=== PATIENT | male | born 1955 | race Caucasian/White ===

== ENCOUNTER 2017-07-28 15:29 | Emergency (ER) | payer OTHER ==
[2017-07-28 15:35] VITALS: BP 136/83
--- NOTE | 2017-07-28 15:48 | ED Physician Documentation ---
History of Present Illness - Stated complaint Stated Complaint: FB THROAT - Chief complaint Chief Complaint: Heent - History obtained from History obtained from: Patient, Family - History of Present Illness Timing: Other (Eating chicken about 45 minutes ago and feels like a bone is stuck on the left side of the throat. Swallowing and speaking is unaffected.) Review of Systems Constitutional: reports: Reviewed and negative Cardiac: reports: Reviewed and negative Respiratory: reports: Reviewed and negative PD PAST MEDICAL HISTORY - Past Medical History Past Medical History: No - Past Surgical History Past Surgical History: No - Present Medications Home Medications: Ambulatory Orders Medication Instructions Recorded Confirmed No Known Home Medications [No 07/28/17 07/28/17 Known Home Medications] - Allergies Allergies/Adverse Reactions: Allergies Allergy/AdvReac Type Severity Reaction Status Date / Time No Known Drug Allergies Allergy Verified 07/28/17 15:35 - Social History Does the pt smoke?: No Smoking Status: Never smoker Does the pt drink ETOH?: Yes Does the pt have substance abuse?: No - Immunizations Immunizations are current?: Yes - POLST Patient has POLST: No PD ED PE NORMAL - Vitals Vital signs reviewed: Yes - General General: Alert and oriented X 3, No acute distress - HEENT HEENT: Pharynx benign - Neck Neck: Supple, no meningeal sign, No bony TTP - Neuro Neuro: Alert and oriented X 3, Normal speech - Psych Psych: Normal mood, Normal affect Results - Vitals Vitals: Vital Signs - 24 hr 07/28/17 15:32 Temperature 36.3 C L Heart Rate 63 Respiratory 16 Rate Blood Pressure 136/83 H O2 Saturation 99 Oxygen O2 Source Room air - Rads (name of study) Soft tissue throat Radiology: EMP read contemporaneously (neg) Departure - Departure Disposition: Home, Self Care Clinical Impression: Throat discomfort Condition: Good Record reviewed to determine appropriate education?: Yes Instructions: ED Foreign Body Esophageal Rslv Comments: Call your doctor to arrange a follow-up appointment, make the next available appointment. In the interim, return anytime if worse or if new symptoms develop. Your blood pressure was elevated today on check into the emergency department. This does not mean that you have hypertension, it is a common phenomenon to come to the emergency department and have elevated blood pressure. I recommend that you see your primary care physician within the week to have it rechecked when you are feeling better.
--- NOTE | 2017-07-28 16:32 | XRAY Preliminary Report ---
Exam: XR NECK SOFT TISSUE IMPRESSION: Normal soft tissue neck radiography. [facility] SITE ID: [id number]
--- NOTE | 2017-07-28 16:39 | XRAY Report ---
EXAM: SOFT TISSUE NECK RADIOGRAPHY EXAM DATE: 07/28/2017 04:25 PM. CLINICAL HISTORY: Possible chicken bone stuck in throat. COMPARISONS: None. TECHNIQUE: 2 views. FINDINGS: Soft Tissues: No prevertebral soft tissue swelling. The epiglottis and aryepiglottic folds are unrema rkable. No tonsillar or adenoidal enlargement. No radiopaque foreign body. Regional Skeleton: Unremarkable for age. Other: The visualized lung apices are clear. IMPRESSION: Normal soft tissue neck radiography. [facility] Referring Provider Line: [phone] SITE ID: [id number]
== END 2017-07-28 17:04 | disposition home or self-care (01) ==
LOC: ED 15:29
DX: R09.89 Other specified symptoms and signs involving the circulatory and respiratory systems (principal)
CPT/HCPCS: 70360; 99282; 99283

== ENCOUNTER 2023-04-12 00:04 | Emergency (ER) | payer MEDICARE, OTHER ==
[2023-04-12 00:22] VITALS: BP 149/87; O2SAT 96
--- NOTE | 2023-04-12 01:33 | ED Physician Documentation ---
PD HPI UPPER EXT INJURY - Stated complaint Stated Complaint: RT FINGER BLEEDING - Chief complaint Chief Complaint: Laceration - History obtained from History obtained from: Patient - Additonal information Additional information: HPI from patient. While working in a woodshop this afternoon, at approximately 4:40 PM, his right second finger (pointer finger) became crushed between two pieces of wood. He is right hand dominant. He experienced immediate pain and swelling of the right pointer finger tip and has had steady oozing of blood since the injury along with increasing swelling. He is unsure if he is UTD on tetanus immunization, but wants to defer booster until he speaks with his primary care provider on Thursday (as he has upcoming chemotherapy and does not know if tdap would interfere in so me way with the Cemipcimab Review of Systems Skin: reports: Laceration (s) Musculoskeletal: reports: Extremity pain, Extremity swelling Neurologic: reports: Focal weakness, Numbness PD PAST MEDICAL HISTORY - Past Medical History Past Medical History: Yes - Past Surgical History Past Surgical History: No - Present Medications Home Medications: Ambulatory Orders Medication Instructions Recorded Confirmed Doxycycline [Vibramycin] 100 mg PO BID #9 tablet 04/12/23 - Allergies Allergies/Adverse Reactions: Allergies Allergy/AdvReac Type Severity Reaction Status Date / Time No Known Drug Allergies Allergy Verified 04/12/23 00:12 - Social History Does the pt smoke?: No Smoking Status: Never smoker Does the pt drink ETOH?: Yes Does the pt have substance abuse?: No - Immunizations Immunizations are current?: Yes - POLST Patient has POLST: No PD ED PE NORMAL - Vitals Vital signs reviewed: Yes - General General: Alert and oriented X 3, No acute distress, Well developed/nourished PD ED PE EXPANDED - Extremities Extremities: Tenderness, Limited ROM (limited flexion of right DIP joint, unclear if due to pain, swelling, or possible tendon injury) MARISOL UE/Hands Visual: 1 - bruising, laceration, swelling, tenderness 2 - laceration (L-shaped laceration (1 and 2 combined per diagram, above)), tenderness Results - Vitals Vitals: Oxygen O2 Source Room air - Rads (name of study) xrays right second finger Relevant Findings:: Prelim report reviewed, See rad report Procedures - Laceration (location) Finger right Length in cm: 2 Wound type: Curved (L-shaped), Into subcut fat, Clean Neurovascular status: Sensory intact, Motor intact, Vascular intact Tendon involvement: Tendon intact Wound preparation: Hibiclens, Irrigated copiously NS Skin layer closure: Nylon, Running, Size #-0 - enter number (4-0) Other: Patient tolerated well, No complications, Neurovascular intact, Dressing applied PD Medical Decision Making - ED course Complexity details: reviewed results, re-evaluated patient, considered differential, d/w patient ED course: finger laceration repaired as per proceudre note, above. Considering delayed closure (injury occurred several hours [employer]), as well as that , although only a tuft fracture, this is still considered an open fracture ad thus given dox ycycline PO in ED with short (5-day) course of BID doxycycline for wound prophylaxis. Although not listed in chart, patient tells me he has penicillin/amoxicillin allergy.Return precautions discussed, follow up for removal of sutures discussed. ED RN Reanna asked to place thumb splint prior to d/c Departure - Departure Disposition: 01 Home, Self Care Clinical Impression: Finger fracture, right Condition: Good Instructions: ED Fx Finger Open, ED Laceration Hand Prescriptions: Doxycycline [Vibramycin] 100 mg PO BID #9 tablet Comments: There is a fracture of the fingertip on the x-rays. This will likely heal without needing anything more specific than the splint that was provided. However, I advise that you follow-up with your primary care provider in 7 to 10 days for removal of the stitches; at that time, you can ask them if any further follow-up is needed regarding the finger fracture. You were also given the first dose of an antibiotic (doxycycline) in the ER, and provided with a prescription for a 5-day course of this antibiotic. The reason for this is your injury is considered an "open fracture": a skin laceration directly over a broken bone. The bacteria that comes in through the laceration can potentially infect the bone, which is an extremely difficult infection to eradicate. The antibiotics will significantly reduce the odds of this happening. Forms: PCP List Discharge Date/Time: 04/12/23 05:18
[2023-04-12] MEDS ORDERED: LIDOCAINE 1% 2 ML VIAL SUBQ STA (02:10)
[2023-04-12] MEDS ORDERED: BACITRACIN ZINC OINT 1 PACKET TOP STA (04:32)
[2023-04-12] MEDS ORDERED: HYDROcod/ACET 5/325 Prepack 4 PO STA (04:34)
[2023-04-12] MEDS ORDERED: DOXYCYCLINE 100 MG TABLET PO STA (04:58)
--- NOTE | 2023-04-12 08:47 | XRAY Report ---
PROCEDURE: Finger(s) RT INDICATIONS: crush injury TECHNIQUE: AP hand, 2 views of the second finger(s) acquired. COMPARISON: None. FINDINGS: Bones: There is a comminuted fracture seen involving the distal aspect of the distal phalanx of the second finger, with additional mild fracture fragment along the radial aspect of the proximal portion of the distal phalanx. No intra-articular involvement is seen. No suspicious bony lesions. Soft tissues: There is associated soft tissue swelling. IMPRESSION: Distal second finger fracture. Note: No significant discrepancy from the preliminary report. Reviewed by: Bola Bahena MD on 04/12/2023 7:45 AM [facility] Approved by: Bola Bahena MD on 04/12/2023 7:45 AM [facility] Station ID: [id number]
== END 2023-04-12 05:18 | disposition home or self-care (01) ==
LOC: ED 00:04
DX: S62.600B Fracture of unspecified phalanx of right index finger, initial encounter for open fracture (principal); W23.0XXA Caught, crushed, jammed, or pinched between moving objects, initial encounter; Y92.89 Other specified places as the place of occurrence of the external cause
CPT/HCPCS: 12001; 73140; 99283; A9270

== ENCOUNTER 2023-04-26 13:35 | Emergency (ER) | payer MEDICARE, OTHER ==
[2023-04-26 14:17] LABS: BASOPHILS # (AUTO) 0.1 10^3/uL (0.0-0.1); BASOPHILS % (AUTO) 0.8 %; EOSINOPHILS # (AUTO) 0.1 10^3/uL (0.0-0.7); HCT - HEMATOCRIT 45.4 % (42.0-52.0); HGB - HEMOGLOBIN 15.1 g/dL (14.0-18.0); LYMPHOCYTES # (AUTO) 1.1 10^3/uL (1.5-3.5); LYMPHOCYTES % (AUTO) 10.5 %; MEAN CORPUSCULAR HEMOGLOBIN 31.3 pg (27.0-31.0); MEAN CORPUSCULAR HGB CONC 33.3 g/dL (32.0-36.0); MEAN CORPUSCULAR VOLUME 94.2 fL (80.0-94.0); MEAN PLATELET VOLUME 10.9 fL (7.4-11.4); MONOCYTES # (AUTO) 1.2 10^3/uL (0.0-1.0); MONOCYTES % (AUTO) 11.7 %; NEUTROPHILS % (AUTO) 75.8 %; PLT - PLATELET COUNT 195 10^3/uL (130-450); RED BLOOD COUNT 4.82 10^6/uL (4.70-6.10); RED CELL DISTRIBUTION WIDTH 12.5 % (12.0-15.0); WHITE BLOOD COUNT 10.6 x10^3/uL (4.8-10.8)
[2023-04-26 14:32] LABS: ALBUMIN 4.7 g/dL (3.2-5.5); ALBUMIN/GLOBULIN RATIO 1.5 (1.0-2.2); BILIRUBIN,TOTAL 1.7 mg/dL (0.2-1.0); POTASSIUM 4.4 mmol/L (3.5-4.5); TOTAL PROTEIN 7.9 g/dL (6.4-8.9)
[2023-04-26 15:23] LABS: BILIRUBIN,URINE NEGATIVE (NEGATIVE); GLUCOSE, URINE (UA) NEGATIVE (NEGATIVE); KETONES,URINE (UA) NEGATIVE (NEGATIVE); LEUKOCYTE ESTERASE, URINE NEGATIVE (NEGATIVE); NITRITE,URINE NEGATIVE (NEGATIVE); OCCULT BLOOD,URINE NEGATIVE (NEGATIVE); PH,URINE 5.5 PH (5.0-7.5); PROTEIN,URINE NEGATIVE (NEGATIVE); UROBILINOGEN,URINE 0.2 (NORMAL) E.U./dL (NORMAL)
[2023-04-26 15:26] LABS: CLARITY,URINE CLEAR (CLEAR)
--- NOTE | 2023-04-26 16:01 | ED Physician Documentation ---
History of Present Illness - Stated complaint Stated Complaint: ABD PX - Chief complaint Chief Complaint: Abd Pain - History obtained from History obtained from: Patient - History of Present Illness Timing: How many days ago (Several) Pain level max: 7 Pain level now: 6 - Additonal information Additional information: Patient is a 67-year-old male who presents to the emergency department with generalized abdominal pain, worse in the left lower quadrant, started after taking his first immunotherapy for squamous cell carcinoma. He sees Dr. Vela, oncology at [facility]. No fevers. No chills. No diarrhea or constipation. Worse with palpation and movement. Nothing makes it better. States last colonoscopy was approximately 5 years ago. Review of Systems Constitutional: denies: Fever, Chills GI: denies: Vomiting, Hematemesis, Bloody / black stool Skin: denies: Rash Musculoskeletal: denies: Neck pain, Back pain Neurologic: denies: Headache PD PAST MEDICAL HISTORY - Past Medical History Past Medical History: Yes Other Past Medical History: Squamous cell carcinoma - Past Surgical History Past Surgical History: No - Present Medications Home Medications: Ambulatory Orders Medication Instructions Recorded Confirmed Ciprofloxacin HCl [Cipro] 500 mg PO BID #20 tablet 04/26/23 metroNIDAZOLE [Flagyl] 500 mg PO BID #20 tablet 04/26/23 - Allergies Allergies/Adverse Reactions: Allergies Allergy/AdvReac Type Severity Reaction Status Date / Time amoxicillin AdvReac Cramps Verified 04/26/23 13:52 - Living Situation Living Situation: reports: With family Living Arrangement: reports: At home - Social History Does the pt smoke?: No Smoking Status: Never smoker Does the pt drink ETOH?: Yes Does the pt have substance abuse?: No - Immunizations Immunizations are current?: Yes - POLST Patient has POLST: No PD ED PE NORMAL - Vitals Vital signs reviewed: Yes - General General: Alert and oriented X 3, No acute distress - HEENT HEENT: Moist mucous membranes - Neck Neck: Supple, no meningeal sign - Cardiac Cardiac: RRR, Strong equal pulses - Respiratory Respiratory: No respiratory distress, Clear bilaterally - Abdomen Abdomen: Soft, Non distended, Other (Tender palpation left lower quadrant. No peritoneal signs.) - Back Back: No spinal TTP - Derm Derm: Warm and dry, No rash - Extremities Extremities: No edema - Neuro Neuro: Alert and oriented X 3 - Psych Psych: Normal mood, Normal affect Results - Vitals Vitals: Vital Signs - 24 hr 04/26/23 04/26/23 13:45 18:10 Temperature 37.3 C Heart Rate 72 66 Respiratory 16 20 Rate Blood Pressure 106/67 129/84 H O2 Saturation 98 100 Oxygen O2 Source Room air - Labs Labs: Laboratory Tests 04/26/23 04/26/23 04/26/23 14:10 14:10 15:15 WBC 10.6 RBC 4.82 Hgb 15.1 Hct 45.4 MCV 94.2 H MCH 31.3 H MCHC 33.3 RDW 12.5 Plt Count 195 MPV 10.9 Neut # (Auto) 8.0 H Lymph # (Auto) 1.1 L [place] # (Auto) 1.2 H Eos # (Auto) 0.1 Baso # (Auto) 0.1 Absolute Nucleated RBC 0.00 Nucleated RBC % 0.0 Sodium 138 Potassium 4.4 Chloride 103 Carbon Dioxide 29 Anion Gap 6.0 BUN 12 Creatinine 1.0 Estimated GFR (MDRD) 74 L Glucose 102 Calcium 10.0 Total Bilirubin 1.7 H AST 13 ALT 14 Alkaline Phosphatase 47 Total Protein 7.9 Albumin 4.7 Globulin 3.2 Albumin/Globulin Ratio 1.5 Lipase 23 Urine Color YELLOW Urine Clarity CLEAR Urine pH 5.5 Ur Specific [place] <=1.005 Urine Protein NEGATIVE Urine Glucose (UA) NEGATIVE Urine Ketones NEGATIVE Urine Occult Blood NEGATIVE Urine Nitrite NEGATIVE Urine Bilirubin NEGATIVE Urine Urobilinogen 0.2 (NORMAL) Ur Leukocyte Esterase NEGATIVE Ur Microscopic Review NOT INDICATED Urine Culture Comments NOT INDICATED - Rads (name of study) CT abdomen pelvis Relevant Findings:: Final report received, See rad report PD Medical Decision Making - ED course Complexity details: reviewed results, re-evaluated patient, considered differential, d/w patient, d/w family, d/w automobile sales consultant ED course: CT scan shows left lower quadrant inflammation consistent with sigmoid diverticulitis. CBC, chemistry and urinalysis did not show any significant abnormalities. He is allergic to amoxicillin, therefore we will treat with Cipro and Flagyl. Discussed the case with Dr. Jules who is on-call for his Oncologist. The patient will follow-up with his doctor and oncologist for further care. No indication for admission at this time. Patient counseled regarding signs and symptoms for which I believe and urgent re-evaluation would be necessary. Patient with good understanding of and agreement to plan and is comfortable going home at this time This document was made in part using voice recognition software. While efforts are made to proofread this document, sound alike and grammatical errors may occur. Departure - Departure Disposition: 01 Home, Self Care Clinical Impression: Diverticulitis Condition: Good Instructions: ED Diverticulitis Follow-Up: ALIZA VELA MD, PHD [Primary Care Provider] - Within 1 week Prescriptions: Ciprofloxacin HCl [Cipro] 500 mg PO BID #20 tablet metroNIDAZOLE [Flagyl] 500 mg PO BID #20 tablet Comments: Your prescriptions were sent to [facility] in [place]. Please take all antibiotics until gone. Please follow-up with your doctor for further care. You should start to notice improvement within the next 24 to 48 hours. Return for worsening pain, fevers or any other new or worrisome symptoms. If you have not had a colonoscopy within the last 4 to 5 years, you should have a repeat colonoscopy once your infection has cleared. EXAM: [id number] CT/ABPEW ([id number]) PROCEDURE: ABDOMEN/PELVIS W INDICATIONS: LLQ abd pain, h/o squamous cell carcinoma CONTRAST: 100mL Opti 320 TECHNIQUE: After the administration of IV contrast, 5 mm thick sections acquired from the diaphragms to the symphysis. 5 mm thick coronal and sagittal reformats were acquired. For radiation dose reduction, the following was used: automated exposure control, adjustment of mA and/or kV according to patient size. COMPARISON: None FINDINGS: Image quality: Excellent. Lung bases and heart: Unremarkable. Liver: No solid mass. Gallbladder and biliary tree: Within normal limits. Spleen: No splenomegaly. Pancreas: No pancreatic ductal dilation. Adrenals: No adrenal nodule. Kidneys and ureters: No hydronephrosis. No renal cystic lesion which requires follow up. No solid mass. Bowel and peritoneum: In this patient with this given history, scrutiny is given to sigmoid colon. Focal wall thickening can be seen involving the proximal sigmoid colon. There is moderate inflammatory change seen surrounding the sigmoid colon, as on series 2 image 66 and on series 5 image 21. No definite free air can be seen. No abscess collection is seen. The more proximal colon is within normal limits. No dilated loops of small bowel are seen. A normal appendix is seen. The stomach is relatively decompressed at the time of this study, limiting its evaluation. Lymph nodes: No central or retroperitoneal adenopathy. Vessels: No infrarenal aortic aneurysm. PELVIS Reproductive organs: Unremarkable. Bladder: No abnormal wall thickening, accounting for underdistension. Pelvic lymph nodes: No pelvic adenopathy by size criteria. Bones: No aggressive osseous abnormality. Focal lower lumbar spine degenerative change Other: No significant ventral or inguinal hernia. IMPRESSION: Moderate sigmoid diverticulitis, without findings of perforation or abscess. A colonoscopy is recommended for further evaluation, following treatment of the patient's current clinical episode, for evaluation of a potential underlying mass. Additional findings: Focal lower lumbar spine degenerative change Normal appendix Forms: PCP List Discharge Date/Time: 04/26/23 18:10
--- NOTE | 2023-04-26 17:32 | CT Report ---
PROCEDURE: ABDOMEN/PELVIS W INDICATIONS: LLQ abd pain, h/o squamous cell carcinoma CONTRAST: 100mL Opti 320 TECHNIQUE: After the administration of IV contrast, 5 mm thick sections acquired from the diaphragms to the symp hysis. 5 mm thick coronal and sagittal reformats were acquired. For radiation dose reduction, the f ollowing was used: automated exposure control, adjustment of mA and/or kV according to patient size. COMPARISON: None FINDINGS: Image quality: Excellent. Lung bases and heart: Unremarkable. Liver: No solid mass. Gallbladder and biliary tree: Within normal limits. Spleen: No splenomegaly. Pancreas: No pancreatic ductal dilation. Adrenals: No adrenal nodule. Kidneys and ureters: No hydronephrosis. No renal cystic lesion which requires follow up. No solid mas s. Bowel and peritoneum: In this patient with this given history, scrutiny is given to sigmoid colon. Fo monalisa wall thickening can be seen involving the proximal sigmoid colon. There is moderate inflammatory change seen surrounding the sigmoid colon, as on series 2 image 66 and on series 5 image 21. No defin ite free air can be seen. No abscess collection is seen. The more proximal colon is within normal limits. No dilated loops of small bowel are seen. A normal appendix is seen. The stomach is relatively decompressed at the time of this study, limitin g its evaluation. Lymph nodes: No central or retroperitoneal adenopathy. Vessels: No infrarenal aortic aneurysm. PELVIS Reproductive organs: Unremarkable. Bladder: No abnormal wall thickening, accounting for underdistension. Pelvic lymph nodes: No pelvic adenopathy by size criteria. Bones: No aggressive osseous abnormality. Focal lower lumbar spine degenerative change Other: No significant ventral or inguinal hernia. IMPRESSION: Moderate sigmoid diverticulitis, without findings of perforation or abscess. A colonoscopy is recommended for further evaluation, following treatment of the patient's current cli nical episode, for evaluation of a potential underlying mass. Additional findings: Focal lower lumbar spine degenerative change Normal appendix Reviewed by: Bola Bahena MD on 04/26/2023 4:30 PM [facility] Approved by: Bola Bahena MD on 04/26/2023 4:30 PM [facility] Station ID: [id number]
[2023-04-26] MEDS ORDERED: CIPROFLOXACIN 250 MG TABLET PO STA (17:41)
[2023-04-26] MEDS ORDERED: metroNIDAZOLE 250 MG TABLET PO STA (17:42)
[2023-04-26] MEDS ORDERED: IOVERSOL 320 100 ML VIAL IVP ONE (18:08)
[2023-04-26 18:15] VITALS: BP 129/84; O2SAT 100
== END 2023-04-26 18:10 | disposition home or self-care (01) ==
LOC: ED 13:35
DX: K57.32 Diverticulitis of large intestine without perforation or abscess without bleeding (principal); Z88.0 Allergy status to penicillin
CPT/HCPCS: 36415; 74177; 80053; 81003; 83690; 85025; 99284; A9270; 81001; 87086